=== PATIENT | female | born 1985 | race African-American/Black ===

== ENCOUNTER 2020-09-26 13:56 | Emergency (ER) | payer OTHER ==
[~2020-09-26] VITALS: Ht 165.1 cm; Wt 52.2 kg
[~2020-09-26 13:56] MED LIST: GLIPIZIDE XL10 MG PO; LANTUS100 UNIT/M SUBQ; NORCO 5-325 TA1 EACH PO; PENICILLIN VK500 M1 PO; [UNRECOGNIZED DRUG - OTHER] IM
[2020-09-26] MEDS ORDERED: ZOFRAN ODT4 MG PO (14:51)
[2020-09-26 16:26] VITALS: BP 146/80
== END 2020-09-26 16:27 | disposition home or self-care (01) ==
LOC: ER 13:56
DX: R11.2 Nausea with vomiting, unspecified (principal); E86.0 Dehydration; J02.9 Acute pharyngitis, unspecified; F31.9 Bipolar disorder, unspecified; E11.9 Type 2 diabetes mellitus without complications; F20.9 Schizophrenia, unspecified; Z79.899 Other long term (current) drug therapy; Z79.4 Long term (current) use of insulin; Z87.891 Personal history of nicotine dependence